=== PATIENT | female | born 1960 | race Asian ===

== ENCOUNTER 2017-12-30 09:27 | Outpatient (CLI) | payer OTHER | END 2017-12-30 19:03 | disposition home or self-care (01) | LOC: US 09:27 | DX: Z12.31 Encounter for screening mammogram for malignant neoplasm of breast (principal); N85.2 Hypertrophy of uterus ==

== ENCOUNTER 2018-01-26 07:20 | Day surgery (SDC) | payer OTHER | END 2018-01-26 10:26 | disposition home or self-care (01) | LOC: OR 07:20 | PROC: 0DJD8ZZ Inspection of Lower Intestinal Tract, Via Natural or Artificial Opening Endoscopic (ICD-10-PCS; principal; 2018-01-26) | DX: K64.8 Other hemorrhoids (principal); K64.4 Residual hemorrhoidal skin tags; Z12.11 Encounter for screening for malignant neoplasm of colon | CPT/HCPCS: J2001; J2250; J2704 ==

== ENCOUNTER 2018-01-26 22:30 | Emergency (ER) | payer OTHER ==
[~2018-01-26] VITALS: Ht 162.6 cm; Wt 76.2 kg
[2018-01-27 00:53] VITALS: BP 147/71; TEMP 98.1
== END 2018-01-27 00:54 | disposition home or self-care (01) ==
LOC: ED 22:30
DX: S90.851A Superficial foreign body, right foot, initial encounter (principal); W45.8XXA Other foreign body or object entering through skin, initial encounter
CPT/HCPCS: 99283; J2001

== ENCOUNTER 2019-05-02 10:42 | Outpatient (CLI) | payer OTHER | END 2019-05-02 22:17 | disposition home or self-care (01) | LOC: RAD 10:42 | DX: M25.562 Pain in left knee (principal) ==

== ENCOUNTER 2019-10-12 10:12 | Outpatient (CLI) | payer OTHER | END 2019-10-12 16:00 | disposition home or self-care (01) | LOC: MAMMO 10:12 | DX: Z12.31 Encounter for screening mammogram for malignant neoplasm of breast (principal) ==

== ENCOUNTER 2020-02-07 14:16 | Emergency (ER) | payer OTHER ==
[~2020-02-07] VITALS: Ht 162.6 cm; Wt 81.6 kg
[2020-02-07 14:48] LABS: PLATELET COUNT 322 K/uL (152-353)
[2020-02-07 14:55] LABS: POTASSIUM 3.6 mmol/L (3.6-5.2)
[2020-02-07 15:07] LABS: PARTIAL THROMBOPLASTIN TIME 25.3 SECONDS (24.5-33.6)
[2020-02-07 15:45] VITALS: BP 130/60; TEMP 98.9
== END 2020-02-07 15:45 | disposition home or self-care (01) ==
LOC: ED 14:16
PROVIDERS: Hospitalist
DX: R07.89 Other chest pain (principal); U07.1 COVID-19
CPT/HCPCS: 36415; 80053; 83880; 84484; 85027; 85610; 85730; 93005; 99284

== ENCOUNTER 2021-10-02 11:10 | Emergency (ER) | payer BC ==
[~2021-10-02] VITALS: Ht 162.6 cm; Wt 84.5 kg
[2021-10-02 11:25] VITALS: TEMP 97.7
[2021-10-02 12:20] VITALS: BP 139/74
== END 2021-10-02 12:20 | disposition home or self-care (01) ==
LOC: ED 11:10
DX: M75.51 Bursitis of right shoulder (principal)
CPT/HCPCS: 96372; 99282; J1885

== ENCOUNTER 2021-11-18 10:13 | Emergency (ER) | payer BC ==
[~2021-11-18] VITALS: Ht 162.6 cm; Wt 84.4 kg
[2021-11-18 11:33] VITALS: BP 120/82; TEMP 97.8
== END 2021-11-18 11:34 | disposition home or self-care (01) ==
LOC: ED 10:13
DX: M25.511 Pain in right shoulder (principal); G89.29 Other chronic pain; M75.51 Bursitis of right shoulder
CPT/HCPCS: 96372; 99283; J1885

== ENCOUNTER 2022-01-18 10:13 | Emergency (ER) | payer BC ==
[~2022-01-18] VITALS: Ht 162.6 cm; Wt 84.4 kg
[2022-01-18 11:48] VITALS: BP 136/88; TEMP 98
== END 2022-01-18 11:54 | disposition home or self-care (01) ==
LOC: ED 10:13
DX: M75.81 Other shoulder lesions, right shoulder (principal)
CPT/HCPCS: 99281; 99282

== ENCOUNTER 2022-07-05 09:30 | Emergency (ER) | payer BC ==
[~2022-07-05] VITALS: Ht 162.6 cm; Wt 84.4 kg
[2022-07-05 09:33] VITALS: TEMP 98.3
[2022-07-05] MEDS ORDERED: PREDNISONE20 MG PO (10:22)
[2022-07-05] MEDS ORDERED: KETO10TA34 PO (10:22)
[2022-07-05 10:42] VITALS: BP 151/98
== END 2022-07-05 10:45 | disposition home or self-care (01) ==
LOC: ED 09:30
DX: M19.011 Primary osteoarthritis, right shoulder (principal)
CPT/HCPCS: 99282